=== PATIENT | female | born 1955 | race Caucasian/White ===

== ENCOUNTER 2018-01-21 13:51 | Inpatient (IN) | payer BC, SELFPAY ==
[~2018-01-21] VITALS: Ht 165.1 cm; Wt 93.0 kg
[~2018-01-21 13:51] MED LIST: COLACE100 MG OR; IBUPROFEN 800800 M1 OR; NORCO 5-325 TA1 EACH OR
[2018-01-21 13:53] VITALS: BP 187/91
[2018-01-21 14:37] LABS: ABSOLUTE EOSINOPHILS 0.2 thou/uL (0.0-0.7); ABSOLUTE LYMPHOCYTES 1.6 thou/uL (0.8-5.3); ABSOLUTE MONOCYTES 0.6 thou/uL (0.0-1.2); ABSOLUTE NEUTROPHILS 3.2 thou/uL (1.6-8.1); BASOPHILS 0.8 %; EOSINOPHILS 3.6 %; HEMATOCRIT 43.4 % (37.0-47.0); HEMOGLOBIN 14.7 gm/dL (12.0-15.0); LYMPHOCYTES 28.5 %; MCH 30.6 pg (26.0-34.0); MCHC 33.9 g/dL (28.0-37.0); MCV 90.1 fL (80.0-100.0); MONOCYTES 11.2 %; MPV 8.4 fl. (7.2-11.1); NUCLEATED RBCS 0 /100WBC; PLATELET COUNT* 178 thou/uL (150-400); POLYS 55.9 %; RBC 4.81 mil/uL (4.20-5.00); RDW-CV 13.6 % (10.5-14.5); WBC 5.6 thou/uL (4.0-11.0)
[2018-01-21 14:50] LABS: ANION GAP 12 mmol/L (7-16); BUN 19 mg/dL (7-18); CALCIUM 8.7 mg/dL (8.5-10.1); CHLORIDE 103 mmol/L (98-107); CO2 25 mmol/L (21-32); GLUCOSE 104 mg/dL (70-99); SODIUM 140 mmol/L (136-145)
[2018-01-21 14:57] LABS: ALBUMIN 3.5 g/dL (3.4-5.0); ALKALINE PHOSPHATASE 114 U/L (46-116); SGOT 39 U/L (15-37); SGPT 48 U/L (30-65); TOTAL BILIRUBIN 0.3 mg/dL (<0.1-1.0); TOTAL PROTEIN 7.9 g/dL (6.4-8.2); TROPONIN-I LEVEL <0.06 ng/mL (<0.06)
[2018-01-21 17:33] VITALS: BP 150/88
[2018-01-21 18:00] VITALS: BP 154/87
--- NOTE | 2018-01-21 20:26 | NUR ---
ASSUMED CARES OF PT FROM Carrie AT 1745. PT IN BED, BED IN LOW LOCKED POSITION, CALL BUTTON AND PERSONAL ITEMS IN PT REACH. PT A&O X4, HRRR PER AUSCULATATION, LCTAB, 16 MALAY AKERS CATH FOR IMMOBILIZATION, CLEAR, YELLOW URINE VIEWED. VSS ON RA, AFEBRILE, PERRLA. LEFT HAND IV 22 GAUGE PATENT TO FLUIDS. Q2 TURNS TO BE REQUIRED. CONSULTS HIMS, ORTHO. RIGHT WRIST WITH TEMP. CAST. REGULAR DIET, NPO AFTER MIDNIGHT. PT TALKATIVE, FRIENDLY, COOPERATIVE. PT SETTLED IN ROOM, EDUCATED, ADMISSION AND SEPSIS COMPLETED. VSS ON RA. REPORT TO LEGAL LIBRARIAN FOR CONTINUED CARES.
[2018-01-21 21:10] VITALS: BP 117/65
--- NOTE | 2018-01-22 05:02 | NUR ---
PATIENT ALERT AND ORIENTED. VITALS STABLE. RA. FENTANYL GIVEN APPROXIMATELY EVERY TWO HOURS. PHYSICIAN NOTIFIED TO INCREASE DOSE. PATIENT STATES THAT SHE DOESNT WANT TO TAKE TO BIG OF A DOSE BECAUSE SHE DOES NOT WANT TO FEEL LOOPY. AKERS TO DEPENDENT DRAINAGE. FLUIDS INFUSING PER ORDER. NPO. HOURLY ROUNDS. INSTRUCTED TO CALL FOR ASSISTANCE. NURSING WILL CONTINUE TO MONITOR.
[2018-01-22 08:30] VITALS: BP 125/74
--- NOTE | 2018-01-22 10:41 | NUR ---
ASSUMED CARES OF PT AT 0700. PT IN BED, BED IN LOW LOCKED POSITION. CALL BUTTON AND PERSONAL ITEMS IN PT REACH. FALL PRECAUTIONS IN PLACE. PT A&O X4, VSS ON RA, AFEBRILE, PAIN TOLERABLE BY PT REPORT. AKERS CATH PATENT WITH CLEAR YELLOW URINE. HRRR PER AUSCULTATION, LCTAB. LEFT HAND IV 22 GAUGE PATENT WITH NS AT 100 ML/HR, Q2 TURN ASSISTANCE CONTINUES. PT BEDREST AT THIS TIME. PT REFUSES NARCOTICS, PREFERS TYLENOL OR IBUPROFEN, REQUESTED FROM DR. ALEXANDER. PT PLEASANT AND COOPERATIVE. OCC. NEEDY. HOURLY ROUNDS CONTINUE. WILL CONTINUE TO MONITOR PT STATUS.
--- NOTE | 2018-01-22 14:17 | NUR ---
RD in to see pt for Leadership rounding. Pt stated that she needs some assistance with meal trays (i.e. opening milk cartons, using a knife) d/t unuse of her Rt arm. She is aware of the alternative ordering menu as well; and she stated she will order things she can eat with one hand, like finger foods. RD encouraged her to call her RN at meal times if needed.
[2018-01-22 16:00] VITALS: BP 126/81
--- NOTE | 2018-01-22 17:36 | NUR ---
SPOKE WITH PT.AND SISTER,MICHELLE IN ROOM. PT.UP IN RECLINER. SHE SAID SHE LIVES ALONE IN A RANCH STYLE HOUSE. SHE HAS 2 STEPS TO ENTER. NO HX OF DME OR HH. SHE IS ACTIVE AND INDEPENDENT. 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 SHE DOES NOT HAVV ANYONE TO STAY WITH HER. HER FRIEND COULD COME OVER IN THE AFTERNOON FOR A COUPLE OF HRS.TO HELP HER AND HER SISTER COULD COME FOR A FEW HOURS IN THE EVENING. DISCUSSED DISCHARGE OPTIONS. SHE IS HOPEFUL SHE COULD GO TO THE ACUTE REHAB UNIT IN THE HOSPITAL IF HER INSRUANCE WILL AUTHORIZE IT. SHE FEELS IF SHE COULD HAVE A COUPLE OF MORE WEEKS OF THERAPY, SHE COULD GO HOME ALONE WITH MINIMAL HELP. SHE IS NWB ON R WRIST AND WBAT ON R HIP. LEFT MESSAGE FOR REHAB ADMISSIONS/LAURA.
--- NOTE | 2018-01-22 17:45 | NUR ---
PT REMAINS STABLE, VSS ON RA. REPORT TO ICEBOX MAN FOR CONTINUED CARES. PT MINIMUM ASST. RLE WBAT, RUE NWB. PHYSICAL AND OCCUPATIONAL THERAPY CONSULTED. IV IN LEFT HAND 22 GAUGE PATENT TO FLUSH/SALINE LOCKED. Q2 TURN IN BED R/T FALL AND HIP FX AND WRIST FX. PT REFUSES NARCOTICS, PREFERS TWO IBUPROFEN FOR PAIN MANAGEMENT. PT BEING CONSIDERED FOR REHAB ON THIRD FLOOR. PT LIVES ALONE IN HOUSE. PT PROGRESSING TOWARDS GOAL. FRIENDLY, COMPLIANT, COOPERATIVE. HOURLY ROUNDING CONTINUES.
[2018-01-22 20:00] VITALS: BP 135/72
--- NOTE | 2018-01-23 05:03 | NUR ---
PATIENT HAS REMAINED ALERT AND ORIENTED X 4 THROUGHOUT THE SHIFT AND RESTING QUIETLY ON HOURLY ROUNDS. PATIENT IN CHAIR AT START OF SHIFT. ASSISTED TO BED WITH WALKER, GAIT BELT AND MIN/MOD ASSIST OF 2 STAFF FOR SIT TO STAND. MIN/CGA FOR STEPS REQUIRED TO BED. RIGHT ER ELEVATED ON PILLOW. PATIENT DECLINES ASSIST TO TURN OVERNIGHT AND DID NOT WANT TO BE AWOKEN. STATES SHE HAS NOT SLEPT WELL PRIOR. VITAL SIGNS STABLE. MEDICATED X 1 FOR PAIN OF THIS WRITING. CONTINUE TO MONITOR.
[2018-01-23 08:10] VITALS: BP 150/94
--- NOTE | 2018-01-23 11:29 | NUR ---
REHAB EVAL ORDERED. DISCUSSED WITH PT. SHE IS GLAD THAT SHE MIGHT GET TO GO TO REHAB. REMINDED HER THAT HER INSURANCE WILL NEED TO AUTHORIZE THIS. SHE UNDERSSTANDS.
--- NOTE | 2018-01-23 12:22 | NUR ---
CONSULT RECEIVED THIS DATE, 01/23/18, FOR INPATIENT REHABILITATION. CONSULT ACKNOWLEDGED BY DR. LOPEZ AND GYNECOLOGICAL ASSISTANT. PATIENT DOING WELL IN THERAPY BUT STILL CONTINUES TO HAVE SKILLED THERAPY NEEDS, WOULD BENEFIT FROM AN INPATIENT REHAB STAY. PATIENT WITH [employer] OUT OF AREA BENEFITS, WILL SEND OFF FOR AUTHORIZATION FOR REHAB. THANK YOU FOR THIS CONSULT.
--- NOTE | 2018-01-23 15:30 | NUR ---
NOTIFIED BY HUNTER TUTTLE THAT PT.AHS BEEN AUTH'D FOR REHAB BY INSURANCE. REHAB IS WAITING TO DISCHARGE A PT. THIS PT.CAN GO TO REHAB ABOUT 7:30-8PM. INFORMED PT.SHE CAN GO TO REHAB THIS JOHNLenard HENDERSON RN WILL CONTACT FOR DISCHARGE ORDERS.
--- NOTE | 2018-01-23 15:59 | NUR ---
TOOK OVER CARE OF PATIENT AT 1400. AGREE WITH THE PREVIOUS NURSES ASSESSMENT. PATIENT HAS NO COMPLAINTS AT THIS TIME. CALL LIGHT IS IN REACH WILL CONTINUE TO MONITOR.
[2018-01-23] MEDS ORDERED: TYLENOL325 MG PO (16:47)
[2018-01-23] MEDS ORDERED: NORCO 5-325 TA1 EACH PO (16:48)
[2018-01-23] MEDS ORDERED: ONDANSETRON HCL4 M2 PO (16:48)
[2018-01-23] MEDS ORDERED: VITAMIN D1000 UNI1 PO (16:49)
[2018-01-23 16:51] VITALS: BP 150/94
--- NOTE | 2018-01-23 17:17 | NUR ---
PATIENT IS ALERT AND ORIENTED VERY PLEASANT. SOME COMPLAINTS OF PAIN THAT IS WELL CONTROLLED WITH ORAL PAIN MEDICATIONS. VITAL SIGNS HAVE BEEN STABLE ON ROOM AIR. PATIENT WILL BE MOVED TO ROOM 318 LATER TODAY, INFORMED PATIENT AND FAMILY. CALL LIGHT IS IN REACH, WILL CONTINUE TO MONITOR.
--- NOTE | 2018-01-23 17:23 | NUR ---
PATIENT HAS BEEN ALERT AND ORIENTED TODAY VERY PLEASANT. VITAL SIGNS STABLE ON ROOM AIR. NO COMPLAINTS OF ANY KIND. CALL LIGHT IS IN REACH, WILL CONTINUE TO MONITOR. PATIENT INFORMED THAT A MOVE TO REHAB AND TO ROOM [address] LATER THIS EVENING. PATIENT STATED UNDERSTANDING.
[2018-01-23 19:41] VITALS: BP 148/76
--- NOTE | 2018-01-23 19:56 | NUR ---
REPORT GIVEN TO REHAB NURSE. SHE WAS NOTIFIED OF MOST RECENT ASSESSMENT AND V/S. PATIENT DENING PAIN AT THIS TIME. GOOD CAPILLARY REFILL IN RIGHT HAND WITH SPLINT AND KATHERINE WRAP IN PLACE. PATIENT HAS VOIDED X1 SINCE AKERS CATHETER D/C. PATIENT TO BE TRANSFERED TO ROOM 323.
--- NOTE | 2018-01-27 13:30 | CON ---
[address] [address] CONSULTATION Name: CLINTONSKYE L Room: [address] M.R.#: [id number] Admission: 01/21/18 Attend Phys: Kassi Diaz Discharge: 01/23/18 Date of : 51 Report #: [id number] THIS REPORT FOR: //name// CC: Mauri Wagoner REASON FOR CONSULTATION: Evaluation and recommendations regarding post-acute rehabilitation. HISTORY OF PRESENT ILLNESS: This is a 62-year-old female status post fall from standing height into a parking lot sustaining a right wrist fracture as well as a left hip fracture. Post-orthopedic care now with ongoing needs in physical and occupational therapy. She is currently minimum to moderate assistance with physical therapy. Her OT date is not entered into the electronic medical record at this point, but it is apparent that she does have occupational therapy needs. She does live alone in a ranch style house, 2 steps to enter. She has friends and family that can help her on discharge. She was previously independent with all activities of daily living and is currently minimum to moderate assistance of 1-2 depending on therapy, activity and time of day. She is nonweightbearing on the right upper extremity and weightbearing as tolerated on the right lower extremity. She has multiple medical comorbidities that would require acute medical care, ongoing monitoring and intensive therapies. Vital signs, laboratories and imaging have all been reviewed. MEDICATIONS: Have been reviewed and are in the MAR. PAST SURGICAL AND MEDICAL HISTORY: Foot surgery x 3 and x 2. FAMILY HISTORY: Not pertinent at this time. SOCIAL HISTORY: No tobacco, alcohol or illicit drug use. REVIEW OF SYSTEMS: A 14-point review of systems is done today and is negative except as mentioned in the HPI, specifically no fever, chest pain, shortness of breath, abdominal pain or distention. PHYSICAL EXAMINATION: GENERAL: Alert, oriented, in no apparent distress. VITAL SIGNS: Reviewed and are stable. HEENT: Head atraumatic and normocephalic. Pupils are equal, round and reactive. ABDOMEN: Soft, nontender and nondistended. NEUROLOGIC: Cranial nerves 2-12 are grossly intact with no focal neuro deficits. EXTREMITIES: There is some swelling in the right arm and right hip, but otherwise no clubbing, [place] [address] CONSULTATION Name: CLINTONSKYE Room: [address]#: [id number] Admission: 01/21/18 Attend Phys: Kassi Diaz Discharge: 01/23/18 Date of : 51 Report #: [id number] ASSESSMENT: 1. Status post extraarticular minimally displaced right distal radius fracture, currently nonweightbearing on the right upper extremity. 2. Comminuted minimally displaced greater trochanter fracture of the right femoral neck. Currently, weightbearing as tolerated. 3. Multiple medical comorbidities. PLAN: 1. Recommend acute inpatient rehabilitation to facilitate safe discharge to the home setting where she lives alone, but has friends and family that can help her multiple times throughout the day. 2. Continue with PT and OT, pain management control. We will follow daily. <ELECTRONICALLY SIGNED> By: Summer Puga DO 01/27/18 1330 1230 [id number] Puga DO /nt
== END 2018-01-23 20:04 | DRG 562 ==
LOC: M.ERS 13:51 → M.TBA-ER 15:54 → M.ORTHSURG 15:54
PROVIDERS: Physician Assistant; ADMIT Internal Medicine
DX: S52.511A Displaced fracture of right radial styloid process, initial encounter for closed fracture (principal); S72.111A Displaced fracture of greater trochanter of right femur, initial encounter for closed fracture; W18.30XA Fall on same level, unspecified, initial encounter; Y93.89 Activity, other specified; Y92.89 Other specified places as the place of occurrence of the external cause; Y99.8 Other external cause status

== ENCOUNTER 2018-01-23 16:44 | Inpatient (IN) | payer BC, SELFPAY ==
[~2018-01-23] VITALS: Ht 165.1 cm; Wt 91.2 kg
[2018-01-23] MEDS ORDERED: TYLENOL325 MG PO (16:47)
[2018-01-23] MEDS ORDERED: NORCO 5-325 TA1 EACH PO (16:48)
[2018-01-23] MEDS ORDERED: ONDANSETRON HCL4 M2 PO (16:48)
[2018-01-23] MEDS ORDERED: VITAMIN D1000 UNI1 PO (16:49)
--- NOTE | 2018-01-24 01:58 | NUR ---
ASSUMED CARE UPON ADMIT VIA BED TO REHAB ROOM 323 AT 2015. TWO SISTERS ACCOMPANIED PATIENT. PATIENT S/P FALL WITH FX RT WRIST AND RT HIP, NEITHER REQUIRING SURGERY. NWB TO RT WRIST, WBAT TO RT HIP. RT WRIST HAS POSTERIOR SPLINT AND KATHERINE WRAP AND FINGERS ARE MOBILE, GOOD SENSATION, PINK AND GOOD CAP REFILL. MOVES WELL IN BED. UP WITH ONE, SLIGHT LIFTING, GAIT BELT, PLATFORM WALKER. NEEDS SOME CUEING FOR SAFETY. SKIN IN GOOD CONDITION. VOIDED PER BSC, MICKI URINE. CAN DO HYGIENE. WEARING HOSPITAL GOWN. SISTER BROUGHT MORE CLOTHING IN FOR PATIENT. INSTRUCTED IN REHAB ROUTINE, UP WITH ASSIST ONLY WITH GAIT BELT AND SAFETY CONCERNS. ASSESSMENT COMPLETED. HOURLY ROUNDS CONTINUE. BED ALARM ON. CALL LITE IN REACH.
--- NOTE | 2018-01-24 05:30 | NUR ---
SLEPT MOST OF THE NIGHT WITH SNORING RESPS NOTED. TURNS SELF IN BED. UP TO BSC ANOTHER TIME TO VOID. NO BM YET, BUT SHE THINKS SHE WILL HAVE ONE LATER TODAY. ABLE TO GET BOTH LEGS INTO BED. MEDICATED FOR PAIN WITH APAP. PATIENT DECLINED HYDROCODONE STATING THAT IT MAKES HER FEEL "FUNNY." CALL LITE IN REACH. BED ALARM ON. HOURLY ROUNDS CONTINUE.
[2018-01-24 07:38] VITALS: BP 127/79
--- NOTE | 2018-01-24 18:02 | NUR ---
PT HAS HAD NAUSEA AND CONSTIPATION TODAY WITH SUPPOSITORY GIVEN WITH GOOD EFFECT AND ZOFRAN GIVEN WITH FAIR EFFECT. PT VOIDING WELL ADN CALLS FOR ASSIST TO BSC. PT TRANSFERRS WELL WITH MIN ASSIST, GAITBELT AND USE OF PLATFORM WALKER. PT DRINKING FLUIDS WELL. PT REMAINS ALERT AND ORIENTATED AND HAS PARTICIPATED WITH THERAPIES.PRN FOR GENERAL ACHES PL. TYLENOL GIVEN THIS AM WITH GOOD EFFECT.PT ORIENTATED TO REHAB PROGRAM AND THERAPIES.HOURLY ROUNDING CONTINUES.
[2018-01-24 20:06] VITALS: BP 123/75
--- NOTE | 2018-01-25 05:09 | NUR ---
ASSUMED PT CARE AT 1930. PT ALERT AND ORIENTED X4, POLITE AND COOPERATIVE WITH CARES. S/P RIGHT HIP FX AND RIGH+T WRIST FX. SPLINT AND KATHERINE WRAP TO RIGHT WRIST. PT C/O HEADACHE, TYLENOL TWICE THIS SHIFT. NO NAUSEA OR VOMITING. PT TRANSERS TO BSC WITH MIN ASSIST, GAIT BELT AND PLATFORM WALKER. LIQUID STOOL X1 PER BSC. PT WORE BRIEFS OVERNIGHT. PT TAKES PILLS WHOLE WITH WATER WITHOUT DIFFICULTY. USES CALL LIGHT APPROPRIATELY. CALL LIGHT AND FREQUENTLY USED ITEMS WITHIN REACH. HOURLY ROUNDING IN PROGRESS, WILL CONTINUE TO MONITOR.
[2018-01-25 07:28] VITALS: BP 130/76
--- NOTE | 2018-01-25 18:46 | NUR ---
pt has ambulated in mora with platform walker,gaitbelt and min assist of 1. pt is nwb to rt.arm and can be wbat to rt.leg. prn pl tylenol for general aches given with good effect this am. pt calls for assist to bsc to void and has had bm this am and denies nausea. rt wrist remains with may wrapped splint and is able to wiggle fingers which are warm and pink. pt remains orientated and alert and has been informed of rehab expectations.hourly rounding continues.
[2018-01-25 20:28] VITALS: BP 136/80
--- NOTE | 2018-01-26 05:10 | NUR ---
ASSUMED PT CARE AT 1930, PT ALERT AND ORIENTED X4. S/P R WRIST FRACTURE AND R HIP FRACTURE. NWB TO R ARM AND WBAT TO R LEG. R WRIST WITH SPLINT AND KATHERINE WRAP. CAN WIGGLE FINGERS OF R HAND WHICH ARE WARM AND PINK. PRN TYLENOL ONCE THIS SHIFT FOR HEADACHE WITH GOOD EFFECT. PT CALLS FOR ASSIST TO BSC TO VOID X 3 THIS SHIFT. STOOL X 1 THIS SHIFT. USES CALL LIGHT APPROPRIATELY. CALL LIGHT AND FREQUENTLY USED ITEMS WITHIN REACH. HOURLY ROUNDING CONTINUES.
[2018-01-26 08:32] VITALS: BP 123/84
--- NOTE | 2018-01-26 08:38 | NUR ---
Nutrition: Pt admitted to s/p fall, femur FX and radius FX. Wt: 201#. Eating 40-90% of meals. +BM yday. Regular diet. RD saw pt on ortho unit last week. Pt states she needs some assistance with meal setup (opening milk cartons, etc) d/t her broken arm. RD has encouraged pt to call RN for needs with meals. Also, showed pt the menu and options for "finger foods" so she doesn't have to use utensils. Low risk. Will follow weekly.
--- NOTE | 2018-01-26 16:12 | NUR ---
ASSUMED CARE AT 0730. ALERT ORIENTED PLEASANT COOPERATIVE. HX OF RT. HIP AND WRIST FX. NWBRUE RUE IN SPLINT USES PLATFORM WALKER FOR AMBULATION AND TRANSFERS AMBULATES TO DR FOR MEALS. PARTICIPATING IN THERAPIES THROUGHOUT THE DAY. USES CALL LIGHT APPROPRIATELY FOR ASSIST. TRANSFERS WITH SBA G BELT WALKER WBATRLE.
--- NOTE | 2018-01-26 17:11 | NUR ---
SW met with pt to complete initial assessment, introduce self, and SW role. Pt friend Greta bedside. Pt lives at home alone with 2 steps to enter and a basement that she does not need to go to for any reason upon dc. Pt main support is her sister who lives 15 minutes away and pt says her friend Greta only lives [address]. Pt was previously independent with ADLs and mobility and drove but pt knows that she will not be driving for a while. Pt did not have any prior DME or hx of HH or SNF. Pt PCP Dr Mauri Weeks. SW reviewed pt rights and health records confidentiality with pt who signed consent form and form is in pt chart. SW discussed team conference on Friday and SW will continue to follow to assist with safe dc planning. Anticipating need for rolling walker with platform attachment and SW also discussed resources for toilet riser with pt and pt friend.
[2018-01-26 19:59] VITALS: BP 127/80
[2018-01-27 04:08] LABS: GLYCOHEMOGLOBIN (HGB A1C) 5.6 % (4.8-5.6)
--- NOTE | 2018-01-27 05:14 | NUR ---
ASSUMED PT CARE AT 1930. PT ALERT AND ORIENTED X4, POLITE AND COOPERATIVE WITH CARES. HX OF RIGHT HIP AND RIGHT WRIST FRACTURES. NWBRUE. WBATRLE. RUE IN SPLINT AND KATHERINE WRAP, USES PLATFORM WALKER TO AMBULATE. PT UP TO BATHROOM TO VOID. TYLENOL AT HS FOR GENERALIZED PAIN. USES CALL LIGHT APPROPRIATELY. CALL LIGHT AND FREQUENTLY USED ITEMS WITHIN REACH. HOURLY ROUNDING IN PROGRESS, WILL CONTINUE TO MONITOR.
[2018-01-27 07:30] VITALS: BP 137/77
--- NOTE | 2018-01-27 16:52 | NUR ---
ASSUMED CARE AT 0730. ALERT ORIENTED PLEASANT COOPERATIVE. HX OF RT. HIP FX WBATRLE RUE WRIST FX. NWBRUE. TRANSFERS WITH SBA G BELT PLATFORM WALKER. AMBULATES TO BR AND DOES HYGEINE AND CLOTHING ADJUSTMENT. MEDICATED X 2 FOR GENERALIZED PAIN WITH PARTIAL RELIEF. USES CALL LIGHT APPROPRIATELY FOR ASSISTANCE. TRANSFERRED TO ROOM 330. WITH BELONGINGS. PARTICIPATING IN THERAPIES THROUGHOUT THE DAY. WEARING SPLINT RUE KATHERINE WRAP.
--- NOTE | 2018-01-27 19:55 | NUR ---
SITTING UP IN CHAIR WITH LEGS ELEVATED. ABLE TO MOVE RIGHT FINGERS AND FINGERS ARE WARM AND PINK. TOOK MEDS WHOLE WITH WATER.
[2018-01-27 21:06] VITALS: BP 152/72
[2018-01-28 00:58] VITALS: BP 152/72
[2018-01-28] MEDS ORDERED: COLACE100 MG PO (01:06)
[2018-01-28] MEDS ORDERED: ENOXAPARIN40 MG/0.1 SUBQ (01:08)
--- NOTE | 2018-01-28 05:09 | NUR ---
IBUPROFEN GIVEN AT 2300 PER PATIENT'S REQUEST FOR C/O GENERALIZED DISCOMFORT. NO FURTHER C/O PAIN. WENT TO BED LATE. PATIENT STATES IS WORRIED BECAUSE HER FATHER IS HAVING SURGERY TODAY. PATIENT IS TO BE DISCHARGED TO HOME TODAY WITH NURSING, PHYSICAL THERAPY AND OCCUPATIONAL THERAPY. UP X ONE DURING THE NIGHT TO THE BATHROOM TO VOID. HOURLY ROUNDING IN PROGRESS.
[2018-01-28 08:19] VITALS: BP 177/84
[2018-01-28 14:47] VITALS: BP 152/72
[2018-01-28] MEDS ORDERED: ASPIRIN325 PO (16:04)
--- NOTE | 2018-01-28 17:24 | NUR ---
ASSESSMENT AND VITAL SIGNS COMPLETED DOCUMENTED. PT CLEARED FOR DISCHARGE. DISCHARGE INSTRUCTIONS DISCUSSED, PRINTED COPY ALSO PROVIDED FOR HOME. PT AND BELONGINGS TRANSPORTED TO EXIT, ASSISTED INTO CAR, DISCHARGED HOME IN STABLE CONDITION.
--- NOTE | 2018-02-04 14:26 | PLAN ---
[address] [address] REHAB UNIT PLAN OF CARE Name: SKYE ALONZO Room: [address]#: [id number] Admission: 01/23/18 Attend Phys: Summer Puga DO Discharge: 01/28/18 Date of : 51 Report #: [id number] THIS REPORT FOR: //name// CC: Mauri Puga PLAN OF CARE: This is a 62-year-old female admitted to inpatient rehabilitation to facilitate safe discharge home, status post multiple traumas including a right displaced intertrochanteric femur fracture and a right transverse nondisplaced distal radial fracture post fall from standing height on to a parking block, landing on the right side. Previous level of function was independent with activities of daily living. Current level of function is minimum to moderate assistance of 1-2 depending on therapy, activity and time of day. She is cognitively intact. Medical prognosis is good. Rehabilitation prognosis is good. Estimated length of stay is 7-9 days with discharge disposition to the home setting with supportive family where she does live in a 1 story house alone. Physical Therapy will see the patient 60-90 minutes per day, 5 days per week, working on upper and lower body strength, balance, coordination and navigation. Occupational Therapy will work with the patient 60-90 minutes per day, 5 days per week, work on upper and lower body strength, balance, coordination, navigation, bathing, dressing and toileting. This is an overall plan of care, may change from time to time, we will team weekly and make changes to plan of care as needed. <ELECTRONICALLY SIGNED> By: Summer Puga DO 02/04/18 1426 1430 [id number] Puga DO /nt
--- NOTE | 2018-02-04 14:26 | D ---
[address] [address] DISCHARGE SUMMARY Name: SKYE ALONZO Room: [address]#: [id number] Admission: 01/23/18 Attend Phys: Summer Puga DO Discharge: 01/28/18 Date of : 51 Report #: [id number] THIS REPORT FOR: //name// CC: Mauri Puga This is a 62-year-old female admitted to inpatient rehabilitation to facilitate safe discharge home status post acute hospitalization after a fall from standing height on to the right side, sustaining a displaced right radial fracture and a displaced intertrochanteric fracture, both managed conservatively by Orthopedics. She is nonweightbearing on the right upper extremity and weightbearing as tolerated on the right lower extremity. She did progress to a modified independent level of care during her acute inpatient rehabilitation stay and essentially should be safe to discharge to the home setting. She will continue with a modified independent stay during this 24-hour period. She will continue with Orthopedics and follow up with her primary care physician and will maintain her weightbearing precautions until that time. She will utilize a platform walker for ambulation. MEDICATIONS: Have been reviewed, reconciled by myself and are available in the MAR. PHYSICAL EXAMINATION: GENERAL: Alert, oriented, no apparent distress. VITAL SIGNS: Reviewed and are stable. HEENT: Atraumatic, normocephalic. Pupils equal, round, reactive. ABDOMEN: Soft, nontender, nondistended. NEUROLOGIC: Cranial nerves 2-12 are grossly intact with no focal neuro deficits, 5/5 strength in the bilateral upper and lower extremities. SKIN: Warm and dry. No rashes or lesions noted. <ELECTRONICALLY SIGNED> By: Summer Puga DO 02/04/18 1426 1338 [id number] Puga DO /nt
--- NOTE | 2018-02-04 14:26 | H ---
[address] [address] HISTORY AND PHYSICAL Name: SKYE ALONZO Room: [address]#: [id number] Admission: 01/23/18 Attend Phys: Summer Puga, Discharge: 01/28/18 Date of : 51 Report #: [id number] THIS REPORT FOR: //name// CC: Mauri Puga DATE OF SERVICE: 01/23/2018 HISTORY OF PRESENT ILLNESS: This is a 62-year-old female admitted to inpatient rehabilitation to facilitate safe discharge home, status post fall from standing height on to the right side with a right displaced intertrochanteric femur fracture and a right transverse nondisplaced distal radius fracture on 01/22/2016. She does have alterations in her activities of daily living from previous level of function of independent to modified independent with activities of daily living to minimum to moderate assistance of 1-2 depending on therapy, activity and time of day. Estimated length of stay is 7-9 days with discharge disposition to the home setting where she lives in a 1 story house. She does live alone, but has supportive family. There has been no significant changes since the preadmission screening. PAST SURGICAL HISTORY: x 2, foot surgery x 3. ALLERGIES: No known drug allergies. FAMILY HISTORY: Negative. SOCIAL HISTORY: No tobacco, alcohol or illicit drug use. REVIEW OF SYSTEMS: A 14-point review of systems is done and is negative except as mentioned in HPI, specifically no fever, chest pain, shortness of breath, abdominal pain or distention. PHYSICAL EXAMINATION: GENERAL: Alert, oriented, in no apparent distress. VITAL SIGNS: Reviewed and are stable. HEENT: Atraumatic, normocephalic. Pupils equal, round, reactive. ABDOMEN: Soft, nontender, nondistended. NEUROLOGIC: Cranial nerves 2-12 are grossly intact. No focal neuro deficits, 5/5 strength in bilateral upper and lower extremities. SKIN: Warm and dry. No rashes or lesions noted. ASSESSMENT: Multiple fractures status post trauma including right displaced intertrochanteric femur fracture and a right transverse nondisplaced distal radius fracture. PLAN: [place] [address] HISTORY AND PHYSICAL Name: AFIA ALONZOROWENA Zavala Room: [address]#: [id number] Admission: 01/23/18 Attend Phys: Summer Puga DO Discharge: 01/28/18 Date of : 51 Report #: [id number] 1. Admission to inpatient rehabilitation. 2. PT, OT, speech, language, case management, nursing to make assessments and recommendations. 3. Plan of care is pending. 4. We will team her weekly and make changes to plan of care as needed. <ELECTRONICALLY SIGNED> By: Summer Puga DO 02/04/18 1426 1429 [id number] Puga DO /abraham
== END 2018-01-28 17:00 | disposition home or self-care (01) | DRG 536 ==
LOC: M.REH 16:44
PROVIDERS: Nurse Practitioner Family; ADMIT Physical Medicine & Rehabilitation
DX: S72.141A Displaced intertrochanteric fracture of right femur, initial encounter for closed fracture (principal); S52.501A Unspecified fracture of the lower end of right radius, initial encounter for closed fracture; W18.39XA Other fall on same level, initial encounter; R73.9 Hyperglycemia, unspecified; Y93.89 Activity, other specified; Y92.89 Other specified places as the place of occurrence of the external cause; Y99.8 Other external cause status; Z98.891 History of uterine scar from previous surgery

== ENCOUNTER → 2018-03-23 | Outpatient (CLI) | payer BC ==
[~2018-03-23] MED LIST changes: +ASPIRIN325 PO; +COLACE100 MG PO; +ENOXAPARIN40 MG/0.1 SUBQ; +NORCO 5-325 TA1 EACH PO; +ONDANSETRON HCL4 M2 PO; +TYLENOL325 MG PO; +VITAMIN D1000 UNI1 PO
== END ==
LOC: M.RAD 15:54
DX: Z12.31 Encounter for screening mammogram for malignant neoplasm of breast (principal)

== ENCOUNTER → 2018-04-07 | Outpatient (CLI) | payer BC, SELFPAY | LOC: M.RAD 14:25 | DX: M54.6 Pain in thoracic spine (principal); V89.2XXA Person injured in unspecified motor-vehicle accident, traffic, initial encounter; Y93.89 Activity, other specified; Y92.89 Other specified places as the place of occurrence of the external cause; Y99.8 Other external cause status ==

== ENCOUNTER → 2018-06-11 | Outpatient (CLI) | payer OTHER, SELFPAY | LOC: M.MRI 13:28 | DX: S83.281A Other tear of lateral meniscus, current injury, right knee, initial encounter (principal); S83.241A Other tear of medial meniscus, current injury, right knee, initial encounter; M25.461 Effusion, right knee; M17.11 Unilateral primary osteoarthritis, right knee; M25.761 Osteophyte, right knee; V89.2XXA Person injured in unspecified motor-vehicle accident, traffic, initial encounter; X58.XXXA Exposure to other specified factors, initial encounter; Y93.89 Activity, other specified; Y92.89 Other specified places as the place of occurrence of the external cause; Y99.8 Other external cause status; Z68.32 Body mass index [BMI] 32.0-32.9, adult ==

== ENCOUNTER → 2020-08-17 | Outpatient (CLI) | payer OTHER | LOC: M.RAD 14:30 | PROVIDERS: ATTEND Internal Medicine | DX: Z12.31 Encounter for screening mammogram for malignant neoplasm of breast (principal); Z13.820 Encounter for screening for osteoporosis; M85.88 Other specified disorders of bone density and structure, other site ==

== ENCOUNTER 2020-12-11 12:59 | Emergency (ER) | payer OTHER ==
[~2020-12-11] VITALS: Ht 162.6 cm; Wt 83.9 kg
[2020-12-11] MEDS ORDERED: AUGMENTIN 875-1 EACH PO (13:34)
[2020-12-11 13:54] VITALS: BP 170/80
== END 2020-12-11 13:54 | disposition home or self-care (01) ==
LOC: M.ERS 12:59
DX: S80.812A Abrasion, left lower leg, initial encounter (principal); Z98.890 Other specified postprocedural states; W54.0XXA Bitten by dog, initial encounter; Y93.89 Activity, other specified; Y92.89 Other specified places as the place of occurrence of the external cause; Y99.8 Other external cause status